=== PATIENT | male | born 1960 | race Caucasian/White ===

== ENCOUNTER 2017-09-23 08:20 | Emergency (ER) | payer OTHER | END 2017-09-23 09:49 | disposition home or self-care (01) | LOC: M ED 08:20 | DX: S39.012A Strain of muscle, fascia and tendon of lower back, initial encounter (principal); X50.9XXA Other and unspecified overexertion or strenuous movements or postures, initial encounter; Y92.59 Other trade areas as the place of occurrence of the external cause; Y93.89 Activity, other specified; Y99.0 Civilian activity done for income or pay; I10 Essential (primary) hypertension; E78.00 Pure hypercholesterolemia, unspecified; Z87.19 Personal history of other diseases of the digestive system; Z98.890 Other specified postprocedural states | CPT/HCPCS: 99282 ==